=== PATIENT | male | born 1975 | race African-American/Black ===

== ENCOUNTER 2018-03-23 12:09 | Emergency (ER) | payer MEDICAID ==
[~2018-03-23] VITALS: Ht 180.3 cm; Wt 90.7 kg
[2018-03-23 12:15] VITALS: BP 116/79
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
[2018-03-23] MEDS ORDERED: IBUPROFEN600 MG ORAL (13:07)
[2018-03-23 13:44] VITALS: BP 116/79
--- NOTE | 2018-03-23 13:53 | Diagnostic Imaging Report ---
Indication: Right wrist pain Findings: 3 views of the right wrist were obtained. There is an acute fracture of the distal radial metaphysis, nondisplaced. Soft tissue swelling noted. IMPRESSION: Acute fracture of the distal radius
== END 2018-03-23 13:52 | disposition home or self-care (01) ==
LOC: EMR 12:22
DX: S52.501D Unspecified fracture of the lower end of right radius, subsequent encounter for closed fracture with routine healing (principal); V18.0XXD Pedal cycle driver injured in noncollision transport accident in nontraffic accident, subsequent encounter
CPT/HCPCS: 29125; 99283

== ENCOUNTER 2019-07-14 22:25 | Emergency (ER) | payer OTHER ==
[~2019-07-14] VITALS: Ht 182.9 cm; Wt 90.7 kg
[~2019-07-14 22:25] MED LIST: IBUPROFEN600 MG ORAL
[2019-07-14 22:52] VITALS: BP 126/82
--- NOTE | 2019-07-14 22:59 | NUR ---
ER Nurse Note: Pt walked in c/o RT eye pain and irriation since 07/14. 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 Pt stated metal pieces, saw dust were around in the air and may have gotten it in his RT eye. Redness, irritation, tearing. Visual acuity completed. Meds pulled out for ERMD. [facility].
[2019-07-14] MEDS ORDERED: Fluorescein Strips LEFT EYE ONE (23:00)
[2019-07-14] MEDS ORDERED: Tetracaine 0.5% Opth 4ml Soln LEFT EYE ONE (23:00)
[2019-07-14] MEDS ORDERED: OCUFLOX5 ML RIGHT EYE (23:26)
[2019-07-14 23:35] VITALS: BP 126/82
--- NOTE | 2019-07-14 23:35 | NUR ---
ED Nurse Note: All orders completed per ERMD orders. Pt cleared by health care Provider for discharge. DC instructions/prescription was given and explained to pt and verbalized understanding of teachings. Instructed pt to follow up with primary care physican within one week. All medical deviecs such as ID band removed. Pt is AAO x4, ambulatory and left with all personal belongings.
--- NOTE | 2019-07-15 00:27 | Emergency Room Report ---
History of Present Illness General Chief Complaint: Eye Problems Source: Patient Present Illness HPI 43-year-old male presents the ED for evaluation of right eye pain. States that he believes something is in his right eye. 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 States he does wear protective eyewear. Pain is dull, 5 out of 10, nonradiating. Denies photophobia or blurry vision. No other aggravating relieving factors. Denies any other associated symptoms Allergies: Coded Allergies: No Known Allergies (Unverified , 03/23/18) Patient History Past Medical History: none Past Surgical History: none Pertinent Family History: none Social History: Denies: smoking, alcohol use, drug use Immunizations: UTD Reviewed Nursing Documentation: PMH: Agreed; PSxH: Agreed Nursing Documentation-PMH Past Medical History: No Stated History Review of Systems All Other Systems: negative except mentioned in HPI Physical Exam Vital Signs Date Time Temp Pulse Resp B/P (MAP) Pulse Ox O2 Delivery O2 Flow Rate FiO2 07/14/19 22:32 98.1 72 18 126/82 (97) 94 Room Air Sp02 EP Interpretation: reviewed, normal General Appearance: no apparent distress, alert, GCS 15, non-toxic Head: normocephalic, atraumatic Eyes: right eye lid inflammation, right eye other - no evidence of foreign body ; bilateral eye normal inspection, bilateral eye PERRL, bilateral eye EOMI ENT: hearing grossly normal, normal pharynx, no angioedema, normal voice Neck: full range of motion, supple/symm/no masses Respiratory: chest non-tender, lungs clear, normal breath sounds, speaking full sentences Cardiovascular #1: regular rate, rhythm, no edema Cardiovascular #2: 2+ carotid (R), 2+ carotid (L), 2+ radial (R), 2+ radial (L) , 2+ dorsalis pedis (R), 2+ dorsalis pedis (L) Gastrointestinal: normal bowel sounds, non tender, soft, non-distended, no guarding, no rebound Rectal: deferred Genitourinary: normal inspection, no CVA tenderness Musculoskeletal: back normal, normal range of motion, gait/station normal, non- tender Neurologic: alert, motor strength/tone normal, oriented x3, sensory intact, responsive, speech normal Psychiatric: judgement/insight normal, memory normal, mood/affect normal, no suicidal/homicidal ideation Reflexes: 3+ bicep (R), 3+ bicep (L), 3+ tricep (R), 3+ tricep (L), 3+ knee (R) , 3+ knee (L) Skin: no rash Lymphatic: no adenopathy Medical Decision Making Diagnostic Impression: Primary Impression: Sensation of foreign body in eye ER Course Hospital Course 43-year-old male presents to ED with R eye pain, feel something in his eye Differential diagnoses include: conjunctivitis, traumatic iritis, foreign body, corneal abrasion Clinical course Patient placed on stretcher. After initial history, I applied tetracaine and Fluorescin to the affected eye. Using Wood's lamp I examined the eyes, no evidence of corneal abrasion. I inverted eyelid and saw no evidence of foreign body. I discussed findings with patient. Will discharge home with ophthalmic antibiotics. Safe for discharge with close outpatient follow-up. I will provide him with optho referrals Diagnosis - sensation of foreign body in eye Stable and discharged to home with prescription for Ocuflox. Followup with PMD/ Optho. Return to ED if symptoms recur or worsen Last Vital Signs Date Time Temp Pulse Resp B/P (MAP) Pulse Ox O2 Delivery O2 Flow Rate FiO2 07/14/19 23:35 98.1 72 18 126/82 94 Room Air Status: improved Disposition: HOME, SELF-CARE Condition: Stable Scripts Ofloxacin (OCUFLOX) 5 Ml Drops 1 DROP RIGHT EYE QID for 7 Days, ML Prov: Miguel Cuevas MD 07/14/19 Referrals: Jaziel Barrios MD Patient Instructions: Eye Foreign Body, [id number] Miguel Cuevas MD Jul 15, 2019 00:27
== END 2019-07-14 23:35 | disposition home or self-care (01) ==
LOC: EMR 22:50
DX: H57.89 Other specified disorders of eye and adnexa (principal)
CPT/HCPCS: 99282